=== PATIENT | male | born 1965 | race Caucasian/White ===

== ENCOUNTER 2017-03-07 07:21 | Day surgery (SDC) | payer OTHER ==
[~2017-03-07] VITALS: Ht 162.6 cm; Wt 86.1 kg
[~2017-03-07 07:21] MED LIST: HYDR-3581 PO; LORA5SOL PO; OMEP10CA2 PO; ZOLP10TA PO
[2017-03-07] MEDS ORDERED: PROPOFOL 40 ML ONE (09:00)
[2017-03-07 09:19] VITALS: Ht 162.6 cm; Wt 86.1 kg
[2017-03-07] MEDS ORDERED: OMEPRAZOLE PO (09:35)
[2017-03-07] MEDS ORDERED: XANAX PO (09:35)
[2017-03-07] MEDS ORDERED: MIRALAX PO (09:35)
[2017-03-07] MEDS ORDERED: ALLOPURINOL PO (09:35)
[2017-03-07] MEDS ORDERED: SOMA PO ×3 (09:35)
[2017-03-07] MEDS ORDERED: SYMBICORT INH (09:35)
[2017-03-07] MEDS ORDERED: ALBUTEROL INH (09:35)
[2017-03-07] MEDS ORDERED: AMLODIPINE PO (09:35)
[2017-03-07 09:38] VITALS: BP 129/82; PULSE 71; RESP 18
[2017-03-07 10:35] VITALS: BP 114/71; PULSE 66; RESP 14
--- NOTE | 2017-03-11 12:42 | GILP ---
Luzmaria RAINEY PROCEDURE DATE OF PROCEDURE: 03/07/2017 PROCEDURE PERFORMED: 1. Esophagogastroduodenoscopy and biopsy. 2. Colonoscopy. SURGEON: Rodrick Kelly MD PREOPERATIVE DIAGNOSES: 1. Abdominal pain. 2. Chronic heartburn. 3. Change in the bowel habits. 4. History of colon polyps. POSTOPERATIVE DIAGNOSES: 1. Hiatal hernia. 2. Gastroesophageal reflux disease. 3. Gastritis with erosions. 4. Gastric mucosal biopsies were taken for Helicobacter pylori test. 5. Colonoscopy all the way to the cecum. 6. Internal hemorrhoids. 7. No colon neoplasm was identified. INDICATION: The patient is a 60-year-old male patient had upper abdominal pain and chronic heartburn not responding to therapy. Patient also noticed a change in the bowel habits. He has a history of colon polyps. Patient scheduled for endoscopy and colonoscopy for further evaluation. The procedure and possible complications of were well explained to the patient. He understood and consented the procedures. DESCRIPTION OF PROCEDURE: Under influence of anesthesia, the gastroscope was carefully introduced into the esophagus and under direct vision it was advanced to the stomach and to the pylorus and to the duodenal bulb and descending duodenum. FINDINGS: Esophagus: Patient had a hiatal hernia and gastroesophageal reflux disease. Stomach: He had gastritis with erosions. Gastric mucosal biopsies were taken for the Helicobacter pylori test. Patient had prominent folds in the prepyloric area and biopsies were taken for histopathology. Duodenum was normal. DESCRIPTION OF PROCEDURE: The colonoscope was carefully introduced into the rectum and under direct vision was advanced all the way to the cecum. FINDINGS: The patient had internal hemorrhoids. No colon neoplasm was identified. He tolerated the procedures very well. There were no complications for the procedure. At the end of the procedure he was awake with stable vital signs and he was discharged home to the care of his family. IMPRESSION: Please see postoperative diagnosis. PLAN: 1. Omeprazole 50 mg p.o. q.a.m. 2. MiraLax 17 gram dissolved in a glass of water p.o. daily. 3. Next screening colonoscopy in 10 years. Dictated By: MD SONIYA Faustin/garetht/bjc /Document#: [id number] Conf#:[id number] DID#: [id number]
== END 2017-03-07 17:03 | disposition home or self-care (01) ==
LOC: GIL 07:21
PROVIDERS: ATTEND Internal Medicine Gastroenterology
DX: R19.4 Change in bowel habit (principal); K29.50 Unspecified chronic gastritis without bleeding; K29.60 Other gastritis without bleeding; K44.9 Diaphragmatic hernia without obstruction or gangrene